=== PATIENT | female | born 1965 | race Caucasian/White ===

== ENCOUNTER → 2023-08-31 08:00 | Outpatient (REF) | payer OTHER, SELFPAY | LOC: HWWDC 08:00 | PROVIDERS: ATTENDING PHYSICIAN Nurse Practitioner Adult Health; FAMILY PHYSICIAN Physician Assistant Medical | DX: Z12.31 Encounter for screening mammogram for malignant neoplasm of breast (principal) | CPT/HCPCS: 77063; 77067 ==

== ENCOUNTER → 2024-06-23 08:11 | Outpatient (REF) | payer OTHER, SELFPAY | LOC: HWRAD 08:11 | PROVIDERS: ATTENDING PHYSICIAN Nurse Practitioner Adult Health; FAMILY PHYSICIAN Physician Assistant Medical | DX: N95.0 Postmenopausal bleeding (principal) | CPT/HCPCS: 76830; 76856 ==

== ENCOUNTER → 2024-08-19 08:25 | Outpatient (REF) | payer OTHER, SELFPAY | LOC: WDC 08:25 | PROVIDERS: ATTENDING PHYSICIAN Nurse Practitioner Adult Health; FAMILY PHYSICIAN Physician Assistant Medical | DX: Z12.31 Encounter for screening mammogram for malignant neoplasm of breast (principal) | CPT/HCPCS: 77063; 77067 ==

== ENCOUNTER 2024-12-12 13:09 | Emergency (ER) | payer OTHER, SELFPAY ==
[2024-12-12 13:11] VITALS: BP 185/106
--- NOTE | 2024-12-12 14:11 | ED.GENMED ---
History of Present Illness
General
Chief Complaint: Musculo-Skeletal Complaint
Time Seen by Provider: 12/12/24 14:10
History of Present Illness
History of Present Illness:
PAST MEDICAL HISTORY AND REVIEW OF OLD RECORDS
- The patient denies any significant past medical history. I reviewed records, the patient had a colonoscopy here 2022.
Note:
CHIEF COMPLAINT(S)
Hematoma with numbness and tingling in the left leg following trauma from a dog head impact.
HISTORY OF PRESENT ILLNESS
The patient is a 59-year-old female who presented after experiencing trauma earlier this morning when her dogs head struck her leg. She does not take any anticoagulant medications such as aspirin, clopidogrel, or warfarin. The patient reports
feeling numbness described as 'pins and needles' in her foot and around the area of impact. She finds it hard to walk due to a large hematoma but denies any foot pain, only experiencing the tingling sensation. The pulse in her left foot,
specifically the dorsalis pedis pulse, is noted to be strong. She has no history of easy bruising elsewhere. The hypothesis is that the hematoma may be exerting pressure on a nerve, potentially leading to her symptoms. She feels sensation and
strength in the affected limb remain intact.
PLAN
Perform blood work to rule out platelet abnormalities and ensure there is no underlying clotting disorder. Review results with consulting natural sciences manager and discuss findings with the patient.
DIFFERENTIAL DIAGNOSIS
The Differential Diagnosis includes, in no particular order and is not limited to:
1. Hematoma due to trauma
2. Nerve compression due to hematoma
3. Peripheral neuropathy
4. Coagulation disorder
5. Deep vein thrombosis
6. Compartment syndrome
7. Arterial injury
8. Soft tissue injury
9. Complex regional pain syndrome
10. Reflex sympathetic dystrophy syndrome
EXAM
- General: Well appearing in no distress
- HEENT: Moist oral mucosa
- Cardiovascular: No murmurs, normal heart rate, regular rhythm, No chest wall tenderness
- Pulmonary: No respiratory distress, breath sounds are clear and equal
- Abdomen: Soft with no peritoneal signs, no tenderness
- Neurologic: Excellent strength all extremities, no coordination deficits
- Psychiatric: Appropriate mental status, normal insight and judgement
- Extremities: There is a 10 x 5 cm hematoma just distal to the left knee, she has excellent DP pulse to the left foot, there is excellent function at the ankle, compartments are soft she has excellent perfusion to the left foot
- Skin: No rash, no lesions
RADIOLOGY
- I personally reviewed x-rays of the left tib-fib which shows no abnormality
LABS
- White count 10.9, hemoglobin and platelets are normal. Minimal transaminase elevation
UPDATE
- I briefly discussed case with Dr. Hart via [place] [facility] as he was unable to immediately talk. Vascular recommended that if there is no vascular concern then they recommend general surgery consultation.
- I spoke to Dr. Prater who feels patient can be safely discharged. The patient has a normal neurologic examination with normal distal function.
SUMMARY OF ENCOUNTER
The patient, a 59-year-old female, presented with swelling and a large hematoma on her left leg following trauma from her dogs head impact. She experienced numbness described as 'pins and needles' and difficulty walking due to the hematoma, although
her left foots dorsalis pedis pulse was strong. Upon consultation, a vascular specialist was mentioned, and a general surgeon�s opinion was sought, but significant concern was not noted. There was no evidence of lack of blood flow, so the decision
was made not to drain the hematoma at this time. An x-ray showed no alarming findings. The recommendation was conservative management with ice application, leg elevation, and monitoring. The patient also presented with elevated blood pressure, not
previously diagnosed, suggesting the need for follow-up regarding potential hypertension.
DISPOSITION
Discharge
PLAN
Conservative management with ice to reduce swelling, keep the leg elevated, and monitor symptoms. Follow-up for elevated blood pressure was advised as it was significantly high during this visit.
INDEPENDENT REVIEW OF LABS AND INTERPRETATION OF TESTS
My independent review of the x-ray indicates no alarming findings related to the hematoma or bone injury.
PATIENT EDUCATION AND COUNSELING
The patient was advised on conservative management of the hematoma with ice application and leg elevation to reduce swelling and alleviate the nerve compression contributing to numbness. It was communicated that symptoms may improve as swelling
subsides. Additionally, the potential need to monitor and evaluate blood pressure was addressed.
FOLLOW-UP INSTRUCTIONS
Follow-up with primary care to address elevated blood pressure readings and reassessment of leg symptoms if they do not improve or worsen.
MEDICAL DECISION MAKING
-Number and Complexity of Problems Addressed: Hematoma due to trauma, possible nerve compression, newly elevated blood pressure.
-Data:
Category 1
The following testing was considered, but ultimately not selected: Further imaging was not ordered based on x-ray findings and clinical examination.
Category 3
Discussion of management with the general surgeon was conducted, who did not find urgent surgical intervention necessary.
DIAGNOSIS
1. Hematoma due to trauma (ICD-10: S80.11XA)
2. Elevated blood pressure (ICD-10: R03.0)
Phy Exam
Physical Exam
Physical Exam:
See HPI
Course
Orders/Labs/Results
Orders:
Orders
12/12/24 14:30
Complete Blood Count/With Diff Urgent
Comprehensive Metabolic Panel Urgent
PTT Urgent
Prothrombin Time Urgent
12/12/24 14:57
CR Leg Tibia/fibula Left 2 Vw Urgent
Comment:
Reason For Exam: trauma
12/12/24 15:10
Consult Surgery [SURGICAL CONSULT] Urgent
Consulting Provider: Hemanth Prater
Was physician already notified: Yes
Reason for consult: eval hematoma; already saw patient
Abnormal Lab Results
12/12/24
14:30
WBC 10.9 H 10^3/uL
(4.8-10.8)
MCH 31.8 H pg
(27.0-31.0)
Abs Immat Gran (auto) 0.1 H 10^3/uL
(0-0.05)
Absolute Neuts (auto) 7.9 H 10^3/uL
(1.4-6.5)
Absolute Monos (auto) 0.8 H 10^3/uL
(0.1-0.6)
Lymphocytes % 18.3 L %
(20.5-51.1)
PT 15.1 H Sec
(11.4-14.6)
Carbon Dioxide 21 L mmol/L
(22-30)
Creatinine 0.5 L mg/dL
(0.6-1.0)
AST 68 H U/L
(14-36)
ALT 92 H U/L
(0-35)
12/12/24 14:30
12/12/24 14:30
Vital Signs
Initial and Last Documented VS:
Initial Vital Signs
Temp Pulse Resp BP Pulse Ox
36.6 C 115 16 185/106 100
12/12/24 13:11 12/12/24 13:11 12/12/24 13:11 12/12/24 13:11 12/12/24 13:11
Last Documented Vital Signs
Temp Pulse Resp BP Pulse Ox
36.6 C 115 16 185/106 100
12/12/24 13:11 12/12/24 13:11 12/12/24 13:11 12/12/24 13:11 12/12/24 14:12
*Pulse Oximetry
SaO2: 100
Oxygen Mode of Delivery: Room air
Patient hypoxic: no
*Critical Care Note
Total Time (30-74mins, 75-104mins- exclusive of procedures): Not Applicable
ED Attending Note
-
Portions of this chart may have been created with voice recognition software.� Occasional wrong word or��sound alike� substitutions may have occurred due to the inherent limitations of voice recognition software.
Discharge Plan
Departure
Patient Disposition: Home (Routine Discharge)
Date of Disposition: 12/12/24
Time of Disposition: 15:51
Patient with high blood pressure during this ER visit?: Yes
Discharge Problem:
Hematoma
Instructions: BLOOD PRESSURE, Hematoma
Referrals:
Jacqueline Whitman DO [Family Provider, [facility]]
Activity Restrictions/Additional Instructions:
Your hemoglobin and platelet counts were normal. Coagulation numbers are normal. Other basic chemistries unremarkable however the transaminases are slightly elevated which are nonspecific and do not necessarily mean anything serious. I do not see
any abnormality on the tib-fib x-ray. I recommend ice to the affected area to help decrease the swelling. Try to keep the leg elevated. Return here if worse or other concerns. You should also follow-up with primary care doctor as your initial
blood pressures were markedly elevated at 185/106.
Interventions
Interventions:
*Risk Screen - Suicide Last Done: 12/12/24 13:13
*Neglect/Abuse Screening Last Done: 12/12/24 13:13
Discharge Date and Time
Print Language: CHADIAN
[2024-12-12 14:48] LABS: Hematocrit 38.9 % (37.0-47.0); Hemoglobin 13.5 g/dL (12.0-16.0); Mean Corp Hgb Conc. 34.7 g/dL (33.0-37.0); Mean Corpuscular Volume 91.5 fL (81.0-99.0); Nucleated Red Blood Cells % 0 %; Platelet Count 235 10^3/uL (130-400); Red Cell Dist. Width 13.4 % (11.5-14.5)
[2024-12-12 14:57] LABS: INR 1.16; PT 15.1 Sec (11.4-14.6)
[2024-12-12 14:58] LABS: APTT 27.8 Sec (23.4-35.0)
[2024-12-12 15:03] LABS: ALT (SGPT) 92 U/L (0-35); AST (SGOT) 68 U/L (14-36); Albumin 4.8 g/dl (3.5-5.0); Alkaline Phosphatase 111 U/L (38-126); Blood Urea Nitrogen 10 mg/dl (7-17); Calcium 9.2 mg/dl (8.4-10.2); Carbon Dioxide 21 mmol/L (22-30); Chloride 107 mmol/L (98-107); Glucose 98 mg/dl (70-99); Potassium 4.2 mmol/L (3.5-5.1); Sodium 138 mmol/L (135-145); Total Protein 7.4 g/dl (6.3-8.2); eGFR > 60.00
--- NOTE | 2024-12-12 15:37 | CON.GS ---
Addendum entered and electronically signed by Hemanth Prater MD 12/12/24 17:23:
I saw and examined the patient independently.
The Paving Rammer's note was reviewed and I agree with the note, assessment and plan except where noted below.
Comment: This is a 59-year-old female with a traumatic hematoma to her left lower extremity. X-ray imaging unremarkable. Motor or sensory is intact. Good strong distal pulses. The hematoma itself is nonpulsatile and not expanding. I have no
concern for compartment syndrome at this time.
Signs and symptoms that should warrant to return to the OR were reviewed with the patient.
The hematoma itself was marked for better monitoring at home but I did explain that the ecchymosis will travel in a dependent fashion posteriorly and inferiorly. All questions answered. She can follow-up with me as an outpatient as warranted.
Original Note:
Consultation
-
Date/Time Consultation Performed: 12/12/24 1500
Medical History
-
Chief Complaint: LLE tingling
History of Present Illness:
59 yo female without significant prior medical or surgical history seen today in the ED for evaluation of a LLE hematoma. She was walking her young dog this morning and his head struck her leg quite hard with a resultant hematoma/ecchymotic area.
She noted a pins and needles type sensation to her leg and presented to the ED for evaluation. On exam, sensation and motor function are intact. Pulses are strong. The site is tender but not severely so and the hematoma itself is nonpulsatile.
Past Medical History
Past Medical History: GERD
Past Surgical History: None
Social History
Tobacco: Non-Smoker
Alcohol: Occasional
Family History
Family History: Reviewed & Not Pertinent
Allergies / Home Medications
Allergy/AdvReac Type Severity Reaction Status Date / Time
NKA - No Known Allergies Allergy Uncoded 09/02/07 18:02
Review of Systems
-
History Source: Patient and Family
All other systems: Negative unless noted
A 10 point review of systems was completed, and was negative except as per HPI.
Physical Exam
Vital Signs
Temp Pulse Resp BP Pulse Ox
98 F 115 16 185/106 100
12/12/24 13:11 12/12/24 13:11 12/12/24 13:11 12/12/24 13:11 12/12/24 14:12
Lab Results
12/12/24 14:30
12/12/24 14:30
WBC 10.9 10^3/uL (4.8-10.8) H 12/12/24 14:30
Hgb 13.5 g/dL (12.0-16.0) 12/12/24 14:30
Hct 38.9 % (37.0-47.0) 12/12/24 14:30
Plt Count 235 10^3/uL (130-400) 12/12/24 14:30
Abs Immat Gran (auto) 0.1 10^3/uL (0-0.05) H 12/12/24 14:30
Neutrophils % 72.4 % (42.2-75.2) 12/12/24 14:30
Physical Exam
General: Well Developed and Well Nourished
HEENT: Moist Mucous Membranes
Respiratory: Non Labored Respirations
Cardiac: Other (left dp/pt strong)
Musculoskeletal: No Cyanosis and No Edema
Skin: Warm, Dry and Other (Hematoma over upper portion of left jimenez, with surrounding ecchymosis (marked), nonpulsatile)
Neuro: Awake, Alert and AO x 3
Psych: Calm
Data Reviewed
-
Radiology: Image Personally Visualized and interpreted, Report Reviewed by me, Discussed with Physician, Discussed with Patient and Discussed with Family
Labs: Labs Reviewed by me, Discussed with Physician, Discussed with Patient and Discussed with Family
Old Records: Reviewed
Assessment / Plan
-
59 yo female without significant prior medical or surgical history seen today in the ED for evaluation of a LLE hematoma which developed acutely this morning after being ran into by her dog with sensation of 'pins and needles' to the lower leg. XR
without fracture, formal read pending. sensation and motor function are intact on exam. Pulses are strong. The site is tender but not severely so and the hematoma itself is nonpulsatile. BP and HR elevated. Mild reactive leukocytosis. Normal h/h. Do
not suspect compartment syndrome.
No plans for emergent surgery. Ok for d/c to home from surgical standpoint
Hematoma itself marked for better monitoring at home, expect the ecchymosis to extend outward from current markings dependently
== END 2024-12-12 16:45 | disposition home or self-care (01) ==
LOC: EMR 13:09
PROVIDERS: CONSULT PHYSICIAN Surgery; EMERGENCY PHYSICIAN Emergency Medicine; FAMILY PHYSICIAN Family Medicine
DX: S80.12XA Contusion of left lower leg, initial encounter (principal); W54.1XXA Struck by dog, initial encounter; R20.0 Anesthesia of skin; D72.829 Elevated white blood cell count, unspecified; R20.2 Paresthesia of skin
CPT/HCPCS: 99284; 73590; 80053; 85025; 85610; 85730